=== PATIENT | female | born 1985 | race Caucasian/White ===

== ENCOUNTER 2023-09-04 13:58 | Emergency (ER) | payer OTHER, SELFPAY ==
[2023-09-04 14:06] VITALS: BP 138/91; PULSE 100; RESP 19; TEMP 36.6; O2SAT 96; BMI 33.5
--- NOTE | 2023-09-04 14:06 | ED_ITS ---
HPI - General Adult General Chief complaint: Abdominal Pain Stated complaint: Back Pain No Injury Time Seen by Provider: 09/04/23 18:17 Related Data Allergies Allergy/AdvReac Type Severity Reaction Status Date / Time No Known Allergies Allergy Verified 09/04/23 14:09 [facility] Social History Social History Advance Directives: No Advance Directives Information Provided: Yes Physical Exam ED Vital Signs: Vital Signs - 24 hr 09/04/23 14:06 09/04/23 18:12 Temperature 98 F Pulse Rate 100 85 Respiratory Rate 19 18 Blood Pressure 138/91 H 139/89 Pulse Oximetry 96 96 Oxygen Delivery Method Room Air Room Air BMI result Body Mass Index 33.5 Course Course Course Narrative: This is an RME: Additional HPI, ROS, PE not included below will be deferred to primary provider. 37 yo f with pmhx pancreatitis and alcohol abuse, alcohol withdrawal, presents with severe l sided flank pain. Reports nausea, vomiting, diarrhea, dizziness. Reports 4 mixed drinks per day. Last drink last night. Medical Decision Making Lab Data 09/04/23 14:20 09/04/23 14:20 Labs: Lab Results 09/04/23 Range/Units 14:20 WBC 5.2 (4.8-10.8) X10*3/uL RBC 4.42 (4.20-5.50) X10*6/uL Hgb 14.9 (12.0-16.0) g/dl Hct 42.5 (37.0-47.0) % MCV 96.2 (80.0-98.0) fL MCH 33.7 H (27.0-33.0) pg MCHC 35.1 H (31.0-35.0) g/dl RDW 12.3 (11.0-16.0) % Plt Count 268 (160-400) X10*3/uL MPV 9.4 (9.4-12.3) fL Immature Gran % (Auto) 0.2 (0.0-0.4) % Neut % (Auto) 44.1 L (45-73) % Lymph % (Auto) 47.0 H (20-40) % [place] % (Auto) 5.5 (2-11) % Eos % (Auto) 1.9 (0-4) % Baso % (Auto) 1.3 (0-2) % Lymph # (Auto) 2.5 (1.2-4.9) X10*3/uL [place] # (Auto) 0.3 (0.1-1.2) X10*3/uL Eos # (Auto) 0.1 (0.0-0.4) X10*3/uL Baso # (Auto) 0.1 (0.0-0.2) X10*3/uL Abs Immat Gran (auto) 0.01 (0.00-0.03) X10*3/uL Absolute Neuts (auto) 2.3 (2.0-8.3) x10*3/uL Absolute Nucleated RBC 0.000 (0.0-0.012) X10*3/uL Nucleated RBC % (auto) 0.0 (0.0-0.2) /100WBC Sodium 142 (135-145) mmol/L Potassium 3.8 (3.3-5.1) mmol/L Chloride 106 (96-108) mmol/L Carbon Dioxide 26 (22-29) mmol/L Anion Gap 14 (12-20) BUN 11 (9-16) mg/dL Creatinine 0.82 (0.5-1.4) mg/dL Estim Creat Clear Calc 115.0 Estimated GFR > 60 Random Glucose 99 (60-115) mg/dL Calcium 8.9 (8.4-10.2) mg/dL Magnesium 2.2 (1.6-2.6) mg/dL Total Bilirubin 0.4 (0.0-1.0) mg/dL AST 21 (5-31) U/L ALT 16 (0-31) U/L Alkaline Phosphatase 83 (39-117) U/L Total Protein 7.5 (6.5-8.0) g/dL Albumin 4.2 (3.5-5.0) g/dL Lipase < 4 L (8-78) U/L Discharge Plan Discharge Clinical Impression: Eloped from emergency department Patient Disposition: Left W/O Completing Treatment
[2023-09-04 14:26] LABS: MANUAL DIFF FLAG NO
[2023-09-04 14:27] LABS: Basophils Absolute Auto 0.1 X10*3/uL (0.0-0.2); Basophils Percent Auto 1.3 % (0-2); Eosinophils Absolute Auto 0.1 X10*3/uL (0.0-0.4); Eosinophils Percent Auto 1.9 % (0-4); Hematocrit 42.5 % (37.0-47.0); Hemoglobin 14.9 g/dl (12.0-16.0); Imm Gran Abs Auto 0.01 X10*3/uL (0.00-0.03); Imm Gran Pct Auto 0.2 % (0.0-0.4); Lymphocytes Absolute Auto 2.5 X10*3/uL (1.2-4.9); Mean Corpuscular HGB Conc 35.1 g/dl (31.0-35.0); Mean Corpuscular Hemoglobin 33.7 pg (27.0-33.0); Mean Corpuscular Volume 96.2 fL (80.0-98.0); Mean Platelet Volume 9.4 fL (9.4-12.3); Monocytes Absolute Auto 0.3 X10*3/uL (0.1-1.2); Monocytes Percent Auto 5.5 % (2-11); Neutrophils Absolute Auto 2.3 x10*3/uL (2.0-8.3); Neutrophils Percent Auto 44.1 % (45-73); Platelet Count 268 X10*3/uL (160-400); Red Blood Count 4.42 X10*6/uL (4.20-5.50); Red Cell Distribution Width 12.3 % (11.0-16.0); White Blood Count 5.2 X10*3/uL (4.8-10.8)
[2023-09-04 15:16] LABS: Alanine Aminotransferase 16 U/L (0-31); Albumin Level 4.2 g/dL (3.5-5.0); Alkaline Phosphatase 83 U/L (39-117); Anion Gap 14 (12-20); Aspartate Amino Transferase 21 U/L (5-31); Bilirubin Total 0.4 mg/dL (0.0-1.0); Blood Urea Nitrogen 11 mg/dL (9-16); Calcium 8.9 mg/dL (8.4-10.2); Carbon Dioxide 26 mmol/L (22-29); Chloride 106 mmol/L (96-108); Estimated Glomerular Filt Rate > 60; Glucose Random 99 mg/dL (60-115); Lipase < 4 U/L (8-78); Magnesium 2.2 mg/dL (1.6-2.6); Potassium 3.8 mmol/L (3.3-5.1); Sodium 142 mmol/L (135-145); Total Protein 7.5 g/dL (6.5-8.0)
[2023-09-04 18:12] VITALS: BP 139/89; PULSE 85; RESP 18; O2SAT 96
== END 2023-09-04 18:18 | disposition left against medical advice (07) ==
PROVIDERS: Physician Assistant; Emergency Provider Emergency Medicine; PCP Family Medicine
DX: R10.9 Unspecified abdominal pain (principal); Z87.19 Personal history of other diseases of the digestive system
CPT/HCPCS: 36415; 80053; 83690; 83735; 85025; 99281; 99283

== ENCOUNTER 2023-09-05 09:21 | Outpatient (REF) | payer OTHER, SELFPAY ==
--- NOTE | ~2023-09-05 | CT_ITS ---
EXAMINATION: CT abdomen pelvis wo IV con CLINICAL INFORMATION: Reason for Exam left flank pain COMPARISON: No prior CT available for comparison. TECHNIQUE: Multidetector volumetric imaging was performed from the superior aspect of the liver through the pubic symphysis , noncontrast CT. Sagittal and coronal reformatted images were obtained on the technologist's workstation. This CT examination was performed using dose optimization techniques as appropriate, variously including the following: *Automated exposure control *Adjustment of mA and/or kV according to patient size (this includes techniques or standardized protocols for targeted exams where dose is matched to indication/reason for exam; i.e. extremities or head) *Use of iterative reconstruction technique DLP: 801 mGy-cm FINDINGS: LOWER THORAX: Included lung bases are clear. HEPATOBILIARY: No focal hepatic lesions. No biliary ductal dilatation. GALLBLADDER: Gallbladder unremarkable. SPLEEN: Spleen is normal in size. PANCREAS: No focal mass or ductal dilatation. STOMACH AND GASTROINTESTINAL TRACT: Stomach is grossly unremarkable. Mild circumferential wall thickening of the entire colon with low attenuation of its mucosal lining nonspecific and could be sequela of chronic or prior colitis. Few sigmoid diverticula without evidence of acute diverticulitis. No CT evidence of appendicitis. ADRENALS: No adrenal nodules. KIDNEYS/URETERS: No hydronephrosis, stones or solid mass lesions. URINARY BLADDER: Partially decompressed. PELVIC VISCERA: Unremarkable PERITONEUM: No free air or fluid. LYMPH NODES: No lymphadenopathy. VASCULAR:Abdominal aorta normal in size, no aneurysm found. BONES, ABDOMINAL WALL AND SOFT TISSUES: Old fractures of the left posterior lower ribs no pathologic acute fractures. CT/CT abdomen pelvis wo IV con IMPRESSION: 1. No CT evidence of kidney stones or hydronephrosis. 2. Mild circumferential wall thickening of the entire colon with low attenuation of its mucosal lining nonspecific and could be sequela of chronic or prior colitis. 3. Mild sigmoid diverticulosis without evidence of acute diverticulitis. 4. No CT evidence of kidney stone or hydronephrosis on either side.
[2023-09-05 09:24] VITALS: BP 140/101; PULSE 95; RESP 18; TEMP 36; O2SAT 97; BMI 33.4
[2023-09-05 09:45] LABS: MANUAL DIFF FLAG NO
[2023-09-05 09:48] LABS: Basophils Absolute Auto 0.1 X10*3/uL (0.0-0.2); Basophils Percent Auto 0.9 % (0-2); Eosinophils Absolute Auto 0.1 X10*3/uL (0.0-0.4); Eosinophils Percent Auto 1.4 % (0-4); Hematocrit 45.9 % (37.0-47.0); Hemoglobin 15.8 g/dl (12.0-16.0); Imm Gran Abs Auto 0.02 X10*3/uL (0.00-0.03); Imm Gran Pct Auto 0.3 % (0.0-0.4); Lymphocytes Absolute Auto 2.3 X10*3/uL (1.2-4.9); Lymphocytes Percent Auto 32.3 % (20-40); Mean Corpuscular HGB Conc 34.4 g/dl (31.0-35.0); Mean Corpuscular Hemoglobin 33.8 pg (27.0-33.0); Mean Corpuscular Volume 98.3 fL (80.0-98.0); Mean Platelet Volume 9.9 fL (9.4-12.3); Monocytes Absolute Auto 0.4 X10*3/uL (0.1-1.2); Monocytes Percent Auto 5.6 % (2-11); Neutrophils Absolute Auto 4.2 x10*3/uL (2.0-8.3); Neutrophils Percent Auto 59.5 % (45-73); Platelet Count 259 X10*3/uL (160-400); Red Blood Count 4.67 X10*6/uL (4.20-5.50); Red Cell Distribution Width 12.5 % (11.0-16.0)
--- NOTE | 2023-09-05 09:52 | ED.GENADULT ---
HPI - General Adult General Chief complaint: Nausea/Vomiting/Diarrhea Stated complaint: Back pain, vomiting Time Seen by Provider: 09/05/23 09:51 Source: patient Mode of arrival: ambulatory Limitations: no limitations History of Present Illness HPI narrative: 37 year old female with pmhx significant for etoh dependence and pancreatitis presents to the ED today for evaluation of left flank pain x1 week. Reports associated nausea, vomiting, and diarrhea that began 2 days ago. She presented to the ED yesterday for evaluation however left without completing treatment. She returns today with continued vomiting and left flank pain. Last episode of vomiting this morning. Admits to history of pancreatitis x2. Last hospitalized for this years ago. Admits this feels similar. Endorses daily etoh consumption, approximately 1 sleeve of nips daily. Last drink was yesterday. She states I feel like I'm withdrawing . Has hx of wtihdrawal. Denies hx of withdrawal seizures or DT. Denies fevers, chills, sore throat, cough, constipation, abdominal pain, dysuria, hematuria, bladder retention. Denies known sick contacts. Related Data Previous Rx's ?Medication ?Instructions ?Recorded cyclobenzaprine 5 mg tablet 5 mg PO Q8H PRN muscle spasm #7 09/05/23 tabs ondansetron 4 mg disintegrating 4 mg PO DAILY PRN nausea and 09/05/23 tablet vomiting 5 days #10 tabs Allergies Allergy/AdvReac Type Severity Reaction Status Date / Time No Known Allergies Allergy Verified 09/05/23 09:27 Review of Systems Review of Systems: Constitutional: No fever, chills, fatigue, night sweats, weight changes ENT/Mouth: No ear pain, hearing loss, nasal congestion, sinus pain, rhinorrhea, sore throat Eyes: No eye pain, swelling, redness, vision changes, discharge Cardio: No chest pain, palpitations, MORENO, orthopnea, peripheral edema Pulm: No SOB, cough, sputum, wheezing, dyspnea, hemoptysis GI: No hematemesis, abdominal pain, constipation, hematochezia, melena, + nausea, + vomiting, + diarrhea, + left flank pain : No irregular bleeding, dysuria, frequency, urgency, hesitancy, hematuria, urinary flow changes, urinary incontinence or retention MSK: No back pain, neck pain, joint pain, myalgias Skin: No lesions, rashes Neuro: No weakness, numbness, paresthesias, LOC, dizziness, headache Psych: No anxiety/panic, depression, SI/HI, AH/VH All other systems reviewed and are negative. [facility] Past Medical History Attestation statement: The following information was validated with the patient. Source: old records reviewed and nursing notes reviewed Social History Social History Advance Directives: No Physical Exam ED Vital Signs: Vital Signs - 24 hr 09/05/23 09:24 09/05/23 11:39 09/05/23 14:36 Temperature 96.8 F 98.1 F 98.3 F Pulse Rate 95 79 80 Respiratory Rate 18 18 18 Blood Pressure 140/101 H 120/78 126/76 Pulse Oximetry 97 94 94 Oxygen Delivery Method Room Air Room Air Room Air BMI result Body Mass Index 33.4 Patient hypertensive, vitals otherwise WNL. Const General: cooperative, healthy appearing, comfortable and no acute distress Orientation/consciousness: patient oriented x3 Limitations: no limitations HENID Head: Yes normal to inspection, Yes No palpable skull fracture present, Yes normocephalic and Yes atraumatic Eyes General: appearance normal, both eyes and all related structures Conjunctivae: conjunctivae normal Sclerae: sclerae normal Pupils: Equal, round and reactive pupils present Neck Neck: Yes normal visual inspection, Yes full ROM and Yes no lymphadenopathy Resp Effort & Inspection: normal respiratory effort and able to speak in complete sentences Auscultation: clear to auscultation bilaterally Cardio Rate: regular rate Rhythm: regular rhythm GI Other: Abdomen soft, nondistended, nontender to palpation, no rebound tenderness or guarding. Negative Norton's sign. Normoactive bowel sounds x4 Inspection: Yes normal to inspection and Yes obesity Other: Left CVAT Back/Spine/Pelvis Other: No midline spinous tenderness or step off deformity. No paraspinal muscle tenderness. Skin General skin exam: no rashes or lesions noted Neuro General: patient oriented x3 and gait normal Cranial nerves: Yes Equal, round and reactive pupils present Extrem General: Yes normal to inspection, Yes full ROM and Yes capillary refill normal Course Course Course Narrative: 1506-- CBC without leukocytosis or left shift. No anemia. Chemistry without acute electrolyte abnormality requiring intervention. Normal renal function. Random glucose 124. Normal liver function. Beta HCG negative > not . She is tested negative for COVID, flu, RSV. Urine does not demonstrate infection or blood > nephrolithiasis less likely. Awaiting CT abdomen/pelvis. 1517-- CT abdomen/pelvis does not show evidence of kidney stone or hydronephrosis. This correlates with normal renal function on labs. There is mild circumferential wall thickening of the entire colon with low attenuation of its mucosal lining. Nonspecific and could be sequela of chronic or prior colitis. There is mild sigmoid diverticulosis without evidence of acute diverticulitis. Patient likely has viral colitis. Discussed all workup results with patient. She is declining stool sample for GI panel at this time. Educated on symptomatic treatment. Will also send Flexeril to pharmacy for likely muscle spasm to left lumbar paraspinal muscles. Patient has remained stable throughout ED visit today. Discussed worrisome signs and symptoms and when to return to the ED. All questions answered at this time. Patient is agreeable with disposition and stable for discharge. Medications Administered Discontinued Medications Generic Name Dose Route Start Last Admin Trade Name Freq PRN Reason Stop Dose Admin Sodium Chloride 1,000 mls @ 999 mls/hr 09/05/23 10:15 09/05/23 13:31 Ns IV 09/05/23 11:15 Infused .Q1H1M ALEJANDRINA Infusion Lorazepam 1 mg 09/05/23 10:13 09/05/23 11:19 Lorazepam 1 Mg Tablet PO 09/05/23 10:14 1 mg ONCE ONE Administration Medical Decision Making Medical Decision Making MDM Narrative: 37 year old female with pmhx significant for etoh dependence and pancreatitis presents to the ED today for evaluation of left flank pain x1 week. Patient hypertensive. Vitals otherwise WNL. Afebrile. She is nontoxic-appearing and in no acute distress. On exam, obese abdomen, nondistended, nontender to palpation. No rebound tenderness or guarding. Normoactive bowel sounds x4. Negative Norton's sign. Left CVAT. No rashes. No asterixis. Mildly tremulous. No tongue fasciculations. Differential diagnosis includes renal colic, nephrolithiasis, hydronephrosis, urinary tract infections, gastroenteritis, viral syndrome, pancreatitis, MSK sprain/strain. Lower suspicion for biliary colic, cholelithiasis, cholangitis, appendicitis, bowel obstruction, ischemic bowel. Plan for labs, viral serology, UA, and re-evaluation. Differential Diagnosis Differential Diagnoses: The differential diagnosis associated with the presentation includes as above. Admission/Observation Consideration of admission/observation: Escalation of care including admission/observation considered Lab Data MDM Lab Attestation statement: I reviewed the patient's lab results. As above 09/05/23 09:39 09/05/23 09:39 Labs: Lab Results 09/05/23 09/05/23 Range/Units 09:39 12:21 WBC 7.0 (4.8-10.8) X10*3/uL RBC 4.67 (4.20-5.50) X10*6/uL Hgb 15.8 (12.0-16.0) g/dl Hct 45.9 (37.0-47.0) % MCV 98.3 H (80.0-98.0) fL MCH 33.8 H (27.0-33.0) pg MCHC 34.4 (31.0-35.0) g/dl RDW 12.5 (11.0-16.0) % Plt Count 259 (160-400) X10*3/uL MPV 9.9 (9.4-12.3) fL Immature Gran % (Auto) 0.3 (0.0-0.4) % Neut % (Auto) 59.5 (45-73) % Lymph % (Auto) 32.3 (20-40) % [place] % (Auto) 5.6 (2-11) % Eos % (Auto) 1.4 (0-4) % Baso % (Auto) 0.9 (0-2) % Lymph # (Auto) 2.3 (1.2-4.9) X10*3/uL [place] # (Auto) 0.4 (0.1-1.2) X10*3/uL Eos # (Auto) 0.1 (0.0-0.4) X10*3/uL Baso # (Auto) 0.1 (0.0-0.2) X10*3/uL Abs Immat Gran (auto) 0.02 (0.00-0.03) X10*3/uL Absolute Neuts (auto) 4.2 (2.0-8.3) x10*3/uL Absolute Nucleated RBC 0.000 (0.0-0.012) X10*3/uL Nucleated RBC % (auto) 0.0 (0.0-0.2) /100WBC Sodium 139 (135-145) mmol/L Potassium 3.9 (3.3-5.1) mmol/L Chloride 105 (96-108) mmol/L Carbon Dioxide 22 (22-29) mmol/L Anion Gap 16 (12-20) BUN 11 (9-16) mg/dL Creatinine 0.81 (0.5-1.4) mg/dL Estim Creat Clear Calc 116.3 Estimated GFR > 60 Random Glucose 124 H (60-115) mg/dL Calcium 9.0 (8.4-10.2) mg/dL Total Bilirubin 0.3 (0.0-1.0) mg/dL AST 19 (5-31) U/L ALT 16 (0-31) U/L Alkaline Phosphatase 84 (39-117) U/L Total Protein 7.9 (6.5-8.0) g/dL Albumin 4.3 (3.5-5.0) g/dL Lipase 4 L (8-78) U/L Beta HCG, Quant < 2 mIU/mL Urine Color Dark Yellow Urine Appearance Clear Urine pH 6.0 (5.0-9.0) Ur Specific [place] 1.025 (1.005-1.025) Urine Protein Negative (Neg-Trace) mg/dL Urine Glucose (UA) Negative (Negative) mg/dL Urine Ketones Negative (Negative) mg/dL Urine Blood Negative (Negative) Urine Nitrite Negative (Negative) Ur Leukocyte Esterase Negative (Negative) Influenza Type A (PCR) NEGATIVE (Negative) Influenza Type B (PCR) NEGATIVE (Negative) RSV RNA Qual (PCR) NEGATIVE (Negative) SARS-CoV-2 RNA (RT-PCR) NEGATIVE (Negative) Prescription Management I considered prescription management with: Pain Medication Chronic Conditions Patient?s care impacted by: Other (ETOH abuse) Social Determinants Patient?s care significantly limited by Social Determinants of Health including: Other Social Determinant of Health Discharge Plan Discharge Clinical Impression: Colitis Patient Disposition: Home, Self-Care Instructions: Acute Nausea and Vomiting (ED), Acute Diarrhea (ED), Colitis (ED) Additional Instructions: Your lab work today is reassuring. Your urine is negative for infection and blood. You tested negative for . You tested negative for COVID, flu, RSV. The CT scan of your abdomen/pelvis shows evidence of colitis (inflammation of your bowel). This is most often caused by a virus and does not warrant treatment with antibiotics. Treatment for this is supportive care. The recommendation is rest and lots of oral hydration.? Stick to a bland diet like soup and toast while you are not feeling well.? Zofran is an anti-nausea medication. This has been sent to your pharmacy for you to take as needed for nausea.? You can also try over the counter Pepto Bismol or Imodium as needed for upset stomach and diarrhea.? Follow up with your primary care provider as needed. If you develop new or worsening symptoms call 911 or come back to the ER for further evaluation. Additionally, Flexeril as a muscle relaxer that has been sent to your pharmacy. Take this as needed for muscle pain/spasm. Do not drink, drive or operate heavy machinery while taking this medication as it may make you drowsy. You may also use the lidocaine patches that you have at home. Apply these every 12 hours to painful areas. Take Tylenol and ibuprofen as needed for pain/discomfort. Please return with new or worsening symptoms. In the case of an emergency call 911. Prescriptions: New cyclobenzaprine 5 mg tablet 5 mg PO Q8H PRN (Reason: muscle spasm) Qty: 7 0RF ondansetron 4 mg tablet,disintegrating 4 mg PO DAILY PRN (Reason: nausea and vomiting) 5 Days Qty: 10 0RF Stand Alone Forms: Work/School Release Print Language: Sami
[2023-09-05 10:15] LABS: Alanine Aminotransferase 16 U/L (0-31); Albumin Level 4.3 g/dL (3.5-5.0); Alkaline Phosphatase 84 U/L (39-117); Anion Gap 16 (12-20); Aspartate Amino Transferase 19 U/L (5-31); Bilirubin Total 0.3 mg/dL (0.0-1.0); Blood Urea Nitrogen 11 mg/dL (9-16); Carbon Dioxide 22 mmol/L (22-29); Chloride 105 mmol/L (96-108); Creatinine Clr Calc Pharmacy 116.3; Estimated Glomerular Filt Rate > 60; Glucose Random 124 mg/dL (60-115); Lipase 4 U/L (8-78); Potassium 3.9 mmol/L (3.3-5.1); Sodium 139 mmol/L (135-145)
[2023-09-05 10:35] LABS: Total Protein 7.9 g/dL (6.5-8.0)
[2023-09-05 10:51] LABS: Influenza A PCR NEGATIVE (Negative); Influenza B PCR NEGATIVE (Negative); Resp Syncy Virus RNA Qual PCR NEGATIVE (Negative); SARS COV2 PCR INHOUSE NEGATIVE (Negative)
[2023-09-05] MEDS: LORazepam 1 MG TABLET PO (11:19)
[2023-09-05] MEDS: 0.9 % Sodium Chloride 1,000 ML 999 ML IV (11:19)
[2023-09-05 11:39] VITALS: BP 120/78; PULSE 79; RESP 18; TEMP 36.7; O2SAT 94
[2023-09-05 12:29] LABS: Appearance Urine Clear; Color Urine Dark Yellow; Glucose Urine UA Negative (Negative); Leukocyte Esterase Urine Negative (Negative); Nitrite Urine Negative (Negative); Specific Gravity - Urine 1.025 (1.005-1.025); Urine Blood Negative (Negative); Urine Ketones Negative (Negative); Urine Protein Negative (Neg-Trace)
[2023-09-05 12:42] LABS: HCG Quantitative < 2 mIU/mL
[2023-09-05 14:36] VITALS: BP 126/76; PULSE 80; RESP 18; TEMP 36.8; O2SAT 94
[2023-09-05 15:48] VITALS: BP 134/78; PULSE 78; RESP 18; TEMP 36.6; O2SAT 98
[2023-09-05 19:08] LABS: CDiff Gene PCR POSITIVE (Negative)
[2023-09-05 19:57] LABS: CDIFF Internal ctrl Dots and bkg OK (V); CDiff Toxin Negative (Negative)
[2023-09-06 10:00] LABS: Adenovirus F 40/41 Not Detected (Not Detect.); Astrovirus Not Detected (Not Detect.); Campylobacter Not Detected (Not Detect.); Cryptosporidium Not Detected (Not Detect.); Cyclospora cayetanensis Not Detected (Not Detect.); E. coli EAEC Not Detected (Not Detect.); E. coli EPEC Not Detected (Not Detect.); E. coli ETEC Not Detected (Not Detect.); E. coli STEC Not Detected (Not Detect.); Entamoeba histolytica Not Detected (Not Detect.); Giardia lamblia Not Detected (Not Detect.); Norovirus GI/GII Not Detected (Not Detect.); Plesiomonas shigelloides Not Detected (Not Detect.); Rotavirus A Not Detected (Not Detect.); Salmonella Not Detected (Not Detect.); Sapovirus Not Detected (Not Detect.); Shigella sp./EIEC Not Detected (Not Detect.); Vibrio Not Detected (Not Detect.); Vibrio Cholerae Not Detected (Not Detect.); Yersinia enterocolitica Not Detected (Not Detect.)
== END 2023-09-05 18:14 | disposition home or self-care (01) ==
LOC: HO.LNP 18:13
PROVIDERS: Emergency Provider Emergency Medicine; PCP Family Medicine; Visit Provider Physician Assistant Medical
DX: K52.9 Noninfective gastroenteritis and colitis, unspecified (principal); K57.30 Diverticulosis of large intestine without perforation or abscess without bleeding; R11.2 Nausea with vomiting, unspecified; I10 Essential (primary) hypertension; F10.20 Alcohol dependence, uncomplicated; Y90.9 Presence of alcohol in blood, level not specified; Z20.828 Contact with and (suspected) exposure to other viral communicable diseases; Z11.52 Encounter for screening for COVID-19
CPT/HCPCS: 0241U; 74176; 80053; 81003; 83690; 84702; 85025; 87324; 87493; 87507; 99284

== ENCOUNTER 2024-05-07 23:19 | Emergency (ER) | payer OTHER, SELFPAY ==
--- NOTE | ~2024-05-07 | XR_ITS ---
EXAMINATION: XR chest 2V CLINICAL INFORMATION: cough COMPARISON: None TECHNIQUE: 2 views of the chest FINDINGS: Clear lungs. No pneumothorax. No pleural effusion. Normal cardiomediastinal silhouette. XR/XR chest 2V IMPRESSION: Clear lungs. Electronically signed by: Yaneth Serrato MD 05/08/2024 12:45 AM [facility]
[2024-05-07 23:25] VITALS: BP 128/96; PULSE 107; RESP 18; TEMP 35.3; O2SAT 98; BMI 30.7
[2024-05-07 23:50] LABS: MANUAL DIFF FLAG NO
[2024-05-07 23:52] LABS: Basophils Absolute Auto 0.1 X10*3/uL (0.0-0.2); Basophils Percent Auto 0.8 % (0-2); Eosinophils Absolute Auto 0.1 X10*3/uL (0.0-0.4); Eosinophils Percent Auto 0.7 % (0-4); Hematocrit 43.5 % (37.0-47.0); Hemoglobin 15.9 g/dl (12.0-16.0); Imm Gran Abs Auto 0.01 X10*3/uL (0.00-0.03); Imm Gran Pct Auto 0.1 % (0.0-0.4); Lymphocytes Absolute Auto 3.5 X10*3/uL (1.2-4.9); Lymphocytes Percent Auto 45.5 % (20-40); Mean Corpuscular HGB Conc 36.6 g/dl (31.0-35.0); Mean Corpuscular Hemoglobin 34.4 pg (27.0-33.0); Mean Corpuscular Volume 94.2 fL (80.0-98.0); Mean Platelet Volume 9.2 fL (9.4-12.3); Monocytes Absolute Auto 0.4 X10*3/uL (0.1-1.2); Monocytes Percent Auto 5.1 % (2-11); Neutrophils Absolute Auto 3.7 x10*3/uL (2.0-8.3); Neutrophils Percent Auto 47.8 % (45-73); Platelet Count 318 X10*3/uL (160-400); Red Blood Count 4.62 X10*6/uL (4.20-5.50); Red Cell Distribution Width 11.7 % (11.0-16.0); White Blood Count 7.6 X10*3/uL (4.8-10.8)
[2024-05-08 00:06] LABS: Alanine Aminotransferase 25 U/L (0-31); Albumin Level 4.1 g/dL (3.5-5.0); Alkaline Phosphatase 87 U/L (39-117); Anion Gap 17 (12-20); Aspartate Amino Transferase 35 U/L (5-31); Bilirubin Total 0.6 mg/dL (0.0-1.0); Blood Urea Nitrogen 16 mg/dL (9-16); Calcium 8.3 mg/dL (8.4-10.2); Carbon Dioxide 19 mmol/L (22-29); Chloride 105 mmol/L (96-108); Creatinine Clr Calc Pharmacy 103.9; Estimated Glomerular Filt Rate > 60; Glucose Random 143 mg/dL (60-115); Lipase 24 U/L (8-78); Potassium 3.8 mmol/L (3.3-5.1); Sodium 137 mmol/L (135-145); Total Protein 7.5 g/dL (6.5-8.0)
[2024-05-08 00:37] LABS: Ethanol 231 mg/dL
--- NOTE | 2024-05-08 00:43 | ED.GENADULT ---
HPI - General Adult General Chief complaint: Nausea/Vomiting/Diarrhea Stated complaint: resp. infection Time Seen by Provider: 05/08/24 00:17 Source: patient, RN notes reviewed and old records reviewed Mode of arrival: ambulatory Limitations: no limitations History of Present Illness ED Provider: Dev HORN narrative: 38-year-old female presents for evaluation of ?a respiratory infection. ? Patient reports that she went to her doctor on Thursday due to coughing. She was started on azithromycin in her last doses tomorrow. She reports that she has been feeling weak and she has been coughing to the point of vomiting. She reports some red streaks in her vomitus. She reports that she drinks 10 nips of vodka daily. She reports her last drink was early this morning She denies any abdominal pain. She has a history of pancreatitis but feels this is about the same. Denies any sick contacts Related Data Previous Rx's ?Medication ?Instructions ?Recorded cyclobenzaprine 5 mg tablet 5 mg PO Q8H PRN muscle spasm #7 09/05/23 tabs ondansetron 4 mg disintegrating 4 mg PO DAILY PRN nausea and 09/05/23 tablet vomiting 5 days #10 tabs ondansetron 4 mg disintegrating 4 mg PO Q8H PRN nausea and 05/08/24 tablet vomiting #20 tabs Allergies Allergy/AdvReac Type Severity Reaction Status Date / Time No Known Allergies Allergy Verified 05/07/24 23:31 Review of Systems Constitutional: Constitutional: Reports body ache(s), Reports chills, Reports fever(s), Denies frequent falls, Reports malaise and Reports weakness Eyes: Eyes: Denies blurry vision ENT: Reports sore throat Cardiovascular: Cardiovascular: Denies chest pain and Reports dyspnea Respiratory: Respiratory: Reports cough, Reports pain with cough and Reports dyspnea Gastrointestinal: Gastrointestinal: Denies abdominal pain, Denies hematochezia, Reports nausea, Reports vomiting and Reports hematemesis Musculoskeletal: Musculoskeletal: Denies back pain Integumentary/Breasts: Skin/Breast: Denies rash Neurologic: Denies frequent falls and Reports weakness Psychiatric: Psychiatric: Denies anxiety PMFSH Social History Social History Alcohol intake: current Smoked in Last 30 Days: No Use of substances other than those prescribed or required for medical reasons: No Advance Directives: No Advance Directives Information Provided: No Do you have a plan to hurt others: No Plan Patient : No Physical Exam ED Vital Signs: Vital Signs - 24 hr 05/07/24 23:25 05/08/24 01:09 Temperature 95.6 F L 98.4 F Pulse Rate 107 H 87 Respiratory Rate 18 14 Blood Pressure 128/96 H 103/75 Pulse Oximetry 98 96 Oxygen Delivery Method Room Air Room Air BMI result Body Mass Index 30.7 Const General: healthy appearing, comfortable, no acute distress, alert and awake Nutritional Appearance: well nourished Orientation/consciousness: patient oriented x3 HENMT Head: Yes normocephalic and Yes atraumatic Throat: Yes posterior oropharynx normal Eyes Eyelids: Yes eyelids normal Conjunctivae: conjunctivae normal Sclerae: sclerae normal Corneas: corneas normal Pupils: Equal, round and reactive pupils present EOM: EOMs intact bilaterally Neck Neck: Yes full ROM Resp Effort & Inspection: normal respiratory effort, able to speak in complete sentences, no audible wheezes and not labored Auscultation: clear to auscultation bilaterally Cardio Rate: regular rate Rhythm: regular rhythm GI Inspection: No distended Palpation (GI): Soft to palpation, not firm, nontender, no guarding and not rigid Skin General skin exam: elasticity normal Neuro General: patient oriented x3 Cranial nerves: Yes Equal, round and reactive pupils present and Yes Bilaterally intact EOM present Cognition (Neuro): normal cognition Extrem Other: Moving all extremities well without any obvious deformities Course Reevaluation(s) Reevaluation #1: Patient's workup largely unremarkable, she was intoxicated with an alcohol level of 231. She was given Zofran Ativan, she has not had any further vomiting. I discussed detox with the patient, she was provided outpatient resources she does not wish to stay and speak to the addiction medicine team. She is medically cleared for discharge at this time Time: 02:08 Medications Administered Discontinued Medications Generic Name Dose Route Start Last Admin Trade Name Freq PRN Reason Stop Dose Admin Lorazepam 2 mg 05/08/24 00:26 05/08/24 00:48 Lorazepam 1 Mg Tablet PO 05/08/24 00:27 2 mg ONCE ONE Administration Ondansetron HCl 4 mg 05/08/24 00:26 05/08/24 00:47 Ondansetron Odt 4 Mg Tab.Amilcar ZAFAR 05/08/24 00:27 4 mg ONCE ONE Administration Medical Decision Making Medical Decision Making [facility] Narrative: 38-year-old female presents for evaluation of flu-like symptoms. She saw her doctor on Thursday, 5 days ago. She denies having had any testing done including viral swabs, chest x-ray. Plan for labs, chest x-ray, viral swabs. The patient's vomiting may be from irritation or Beverly-Bhatia tear, I have a low suspicion for severe GI bleed as the patient is not hypotensive, she is quite well appearing and has not had any vomiting whatsoever in the Differential Diagnosis Differential Diagnoses: The differential diagnosis associated with the presentation includes Influenza COVID-19 Pneumonia Upper respiratory infection Vomiting Alcohol withdrawal Acute alcohol intoxication Lab Data [facility] Lab Attestation statement: I reviewed the patient's lab results. No leukocytosis. The patient has a high normal hemoglobin and hematocrit of 15.9 and 43.5 respectively, there is no significant left shift. Chemistries without concerning abnormality. CO2 is just below normal at 19 which may be related to hyperventilation. Random glucose of 143. The patient's AST is just above normal at 35 which could be related to alcoholic liver disease. Lipase is within normal limits, 05/07/24 23:46 05/07/24 23:46 Labs: Lab Results 05/07/24 05/08/24 Range/Units 23:46 01:04 WBC 7.6 (4.8-10.8) X10*3/uL RBC 4.62 (4.20-5.50) X10*6/uL Hgb 15.9 (12.0-16.0) g/dl Hct 43.5 (37.0-47.0) % MCV 94.2 (80.0-98.0) fL MCH 34.4 H (27.0-33.0) pg MCHC 36.6 H (31.0-35.0) g/dl RDW 11.7 (11.0-16.0) % Plt Count 318 (160-400) X10*3/uL MPV 9.2 L (9.4-12.3) fL Immature Gran % (Auto) 0.1 (0.0-0.4) % Neut % (Auto) 47.8 (45-73) % Lymph % (Auto) 45.5 H (20-40) % [place] % (Auto) 5.1 (2-11) % Eos % (Auto) 0.7 (0-4) % Baso % (Auto) 0.8 (0-2) % Lymph # (Auto) 3.5 (1.2-4.9) X10*3/uL [place] # (Auto) 0.4 (0.1-1.2) X10*3/uL Eos # (Auto) 0.1 (0.0-0.4) X10*3/uL Baso # (Auto) 0.1 (0.0-0.2) X10*3/uL Abs Immat Gran (auto) 0.01 (0.00-0.03) X10*3/uL Absolute Neuts (auto) 3.7 (2.0-8.3) x10*3/uL Absolute Nucleated RBC 0.000 (0.0-0.012) X10*3/uL Nucleated RBC % (auto) 0.0 (0.0-0.2) /100WBC Sodium 137 (135-145) mmol/L Potassium 3.8 (3.3-5.1) mmol/L Chloride 105 (96-108) mmol/L Carbon Dioxide 19 L (22-29) mmol/L Anion Gap 17 (12-20) BUN 16 (9-16) mg/dL Creatinine 0.86 (0.5-1.4) mg/dL Estim Creat Clear Calc 103.9 Estimated GFR > 60 Random Glucose 143 H (60-115) mg/dL Calcium 8.3 L D (8.4-10.2) mg/dL Total Bilirubin 0.6 (0.0-1.0) mg/dL AST 35 H (5-31) U/L ALT 25 (0-31) U/L Alkaline Phosphatase 87 (39-117) U/L Total Protein 7.5 (6.5-8.0) g/dL Albumin 4.1 (3.5-5.0) g/dL Lipase 24 (8-78) U/L Beta HCG, Quant < 2 mIU/mL Ethyl Alcohol 231 mg/dL Influenza Type A (PCR) NEGATIVE (Negative) Influenza Type B (PCR) NEGATIVE (Negative) RSV RNA Qual (PCR) NEGATIVE (Negative) SARS-CoV-2 RNA (RT-PCR) NEGATIVE (Negative) Independent Interpretation I performed an independent interpretation of an: Plain X-Ray (No focal infiltrates) Discharge Plan Discharge Clinical Impression: Cough, Alcohol abuse Patient Disposition: Home, Self-Care Instructions: Abuse of Alcohol (ED), Acute Cough (ED) Additional Instructions: Your workup in the ER today was reassuring. This includes your blood work, viral swabs. Your chest x-ray was clear, you did not have pneumonia. I recommend that you finish your last dose of azithromycin. Use Zofran as needed for nausea and vomiting. I recommend that you follow-up with detox resources on the page listed Prescriptions: New ondansetron 4 mg tablet,disintegrating 4 mg PO Q8H PRN (Reason: nausea and vomiting) Qty: 20 0RF No Action cyclobenzaprine 5 mg tablet 5 mg PO Q8H PRN (Reason: muscle spasm) Qty: 7 0RF ondansetron 4 mg tablet,disintegrating 4 mg PO DAILY PRN (Reason: nausea and vomiting) 5 Days Qty: 10 0RF Print Language: Czech
[2024-05-08] MEDS: Ondansetron ODT 4 MG TAB.RAPDIS TRANSLINGU (00:47)
[2024-05-08] MEDS: LORazepam 1 MG TABLET 2 MG PO (00:48)
[2024-05-08 00:49] LABS: HCG Quantitative < 2 mIU/mL
--- NOTE | 2024-05-08 01:08 | PC.NURSE ---
pt a&ox4, respirations even and unlabbored. pt reporting x3 days of nausea, vomiting and diarrhea, pt also reports drinking x1 sleeve of nips a day and has not drank since she was sick and reports she thinks she is in withdrawal. pt CIWA= 0. pt medicated per mar, tolerated well with water.
[2024-05-08 01:09] VITALS: BP 103/75; PULSE 87; RESP 14; TEMP 36.9; O2SAT 96
--- NOTE | 2024-05-08 01:12 | PC.NURSE ---
pt reports she does not feel as if she wants to go to rehab or have any assistance to help stop drinking.
[2024-05-08 01:48] LABS: Influenza A PCR NEGATIVE (Negative); Influenza B PCR NEGATIVE (Negative); Resp Syncy Virus RNA Qual PCR NEGATIVE (Negative); SARS COV2 PCR INHOUSE NEGATIVE (Negative)
[2024-05-08 02:17] VITALS: BP 103/75; PULSE 87; RESP 14; TEMP 36.9; O2SAT 96
== END 2024-05-08 02:18 | disposition home or self-care (01) ==
PROVIDERS: Physician Assistant; Emergency Provider Emergency Medicine; PCP Family Medicine
DX: R05.9 Cough, unspecified (principal); F10.10 Alcohol abuse, uncomplicated; R11.2 Nausea with vomiting, unspecified; Y90.7 Blood alcohol level of 200-239 mg/100 ml; Z71.41 Alcohol abuse counseling and surveillance of alcoholic; Z51.81 Encounter for therapeutic drug level monitoring; Z03.818 Encounter for observation for suspected exposure to other biological agents ruled out; Z79.899 Other long term (current) drug therapy
CPT/HCPCS: 0241U; 36415; 71046; 80053; 80307; 83690; 84702; 85025; 99284

== ENCOUNTER 2024-06-06 05:25 | Emergency (ER) | payer OTHER, SELFPAY ==
--- NOTE | ~2024-06-06 | XR_ITS ---
CLINICAL HISTORY: ankle swelling pain Exam: AP, lateral, and mortise views of the right ankle. Comparison: None. Findings: Bony alignment is anatomic. No acute fracture. Ankle mortise is intact. Well corticated ossification inferior to the lateral malleolus measures 3 mm in size. Moderate lateral soft tissue swelling. Impression: Moderate lateral soft tissue swelling without acute fracture. This document has been electronically signed by: Donnell Galvan MD on 06/06/2024 06:48:51
[2024-06-06 05:30] VITALS: BP 111/63; PULSE 86; RESP 16; TEMP 36.2; O2SAT 97; BMI 31.9
--- NOTE | 2024-06-06 07:53 | ED.EXTPRO ---
HPI - Extremity Problem General Chief complaint: Extremity Problem Stated complaint: right swollen ankle Time Seen by Provider: 06/06/24 07:30 Source: patient Mode of arrival: ambulatory Limitations: no limitations History of Present Illness ED Provider: SHERLY CANAS PA-C HPI Narrative: 38 year old female with pmhx significant for etoh abuse presents to the ED today for evaluation of right ankle swelling/ redness x2 days. Report pain and swelling has been increasing over the last few days. Pain is worse with ambulating. She has been icing, elevating and taking tylenol/ motrin at home with little relief. Last dose was last night. She denies any injury, trauma or falls. No known history of gout or DM. She was recently started on hydroxyzine, trazodone, and naltrexone. She has been sober from etoh for 3-4 weeks now. Denies fever, chills, nausea or vomiting, numbness/tingling/weakness to the lower extremity. Denies IV drug use. Related Data Previous Rx's ?Medication ?Instructions ?Recorded cyclobenzaprine 5 mg tablet 5 mg PO Q8H PRN muscle spasm #7 09/05/23 tabs ondansetron 4 mg disintegrating 4 mg PO DAILY PRN nausea and 09/05/23 tablet vomiting 5 days #10 tabs ondansetron 4 mg disintegrating 4 mg PO Q8H PRN nausea and 05/08/24 tablet vomiting #20 tabs naproxen 500 mg tablet 500 mg PO Q12H PRN pain (scale 06/06/24 score 1-3) #20 tabs prednisone 20 mg tablet 40 mg (2 x 20 mg) PO DAILY 5 days 06/06/24 #10 tabs Allergies Allergy/AdvReac Type Severity Reaction Status Date / Time No Known Allergies Allergy Verified 06/06/24 05:31 Review of Systems Review of Systems: Constitutional: No fever, chills, fatigue, night sweats, weight changes ENT/Mouth: No ear pain, hearing loss, nasal congestion, sinus pain, rhinorrhea, sore throat Eyes: No eye pain, swelling, redness, vision changes, discharge Cardio: No chest pain, palpitations, MORENO, orthopnea, peripheral edema Pulm: No SOB, cough, sputum, wheezing, dyspnea, hemoptysis GI: No nausea, vomiting, hematemesis, abdominal pain, diarrhea, constipation, hematochezia, melena : No irregular bleeding, dysuria, frequency, urgency, hesitancy, hematuria, flank pain, urinary flow changes, urinary incontinence or retention MSK: No back pain, neck pain, joint pain, myalgias, +right ankle pain/swelling/redness Skin: No lesions, rashes Neuro: No weakness, numbness, paresthesias, LOC, dizziness, headache Psych: No anxiety/panic, depression, SI/HI, AH/VH All other systems reviewed and are negative. [facility] Past Medical History Attestation statement: The following information was validated with the patient. Source: old records reviewed and nursing notes reviewed Social History Social History Alcohol intake: current Advance Directives: No Advance Directives Information Provided: Yes Do you have a plan to hurt others: No Plan Physical Exam Vital Signs: Vital Signs: Last Vital Signs Temp 97.1 F 06/06/24 05:30 Pulse 86 06/06/24 05:30 Resp 16 06/06/24 05:30 BP 111/63 06/06/24 05:30 Pulse Ox 97 06/06/24 05:30 O2 Del Method Room Air 06/06/24 05:30 BMI result Body Mass Index 31.9 vital signs stable, afebrile General: Well appearing, in no acute distress. Skin: Warm, dry, intact. No rashes or lesions. Head: Normocephalic, atraumatic. EENT: Hearing is intact b/l. Conjunctiva clear. PERRLA. EOM intact. Moist mucous membranes.? Cardiac: Chest wall symmetric. RRR Lungs: Normal respiratory effort without accessory muscle use. CTA bilaterally Back: No midline spinous or paraspinal tenderness. No step off deformity. Ext: +right ankle with noted swelling. minimal overlying erythema. no obvious deformity. decreased ROM d/t pain, swelling. diffuse ttp of ankle w/o palpable deformity, crepitus, fluctuance. ambulating w/ limping gait. 2+ pt/dp pulse intact. Neuro: AOx3. Normal speech. Psych: Appropriate mood and affect. Responds appropriately to questions. Course Course Course Narrative: CBC without leukocytosis or left shift. Macrocytic anemia, likely secondary to ETOH abuse. H&H stable. Chemistry without acute electrolyte abnormality requiring intervention. No SHARON. Random glucose 184. Normal liver function. Inflammatory markers elevated. Uric acid elevated to 9.9. Beta HCG undetectable > both exam and workup are consistent with acute gout attack. Patient treated with Toradol in the ED. Will send naproxen and prednisone to pharmacy for treatment. Omer wrap applied to the ankle and she has been provided with crutches. Educated on rice treatment. She has already scheduled follow up with her PCP within the next few weeks. Patient has remained stable throughout ED visit today. Discussed worrisome signs and symptoms and when to return to the ED. All questions answered at this time. Patient is agreeable with disposition and stable for discharge. Medications Administered Discontinued Medications Generic Name Dose Route Start Last Admin Trade Name Freq PRN Reason Stop Dose Admin Ketorolac Tromethamine 30 mg 06/06/24 07:50 06/06/24 09:01 Ketorolac Tromethamine 30 Mg/Ml Vial IM 06/06/24 07:51 30 mg ONCE ONE Administration Medical Decision Making Medical Decision Making [facility] Narrative: 38 year old female with pmhx significant for etoh abuse presents to the ED today for evaluation of right ankle swelling/ redness x2 days. Vital signs stable. Afebrile. She is nontoxic-appearing and in no acute distress. Exam significant for right ankle with noted swelling. minimal overlying erythema. no obvious deformity. decreased ROM d/t pain, swelling. diffuse ttp of ankle w/o palpable deformity, crepitus, fluctuance. ambulating w/ limping gait. 2+ pt/dp pulse intact. Differential diagnosis includes fracture, MSK sprain/strain, gout, pseudogout. Lower suspicion for Lyme arthritis vs septic joint. Unlikely DVT, neurovascular compromise, threat to limb, compartment syndrome. Imaging obtained prior to my assumption of care. Will add on basic blood work, uric acid level. Toradol ordered for pain control. Plan for re-evaluation. Differential Diagnosis Differential Diagnoses: The differential diagnosis associated with the presentation includes as above. Admission/Observation Not indicated. Lab Data [facility] Lab Attestation statement: I reviewed the patient's lab results. as above. 06/06/24 08:37 06/06/24 08:37 Labs: Lab Results 06/06/24 Range/Units 08:37 WBC 8.6 (4.8-10.8) X10*3/uL RBC 3.62 L D (4.20-5.50) X10*6/uL Hgb 12.1 D (12.0-16.0) g/dl Hct 36.4 L (37.0-47.0) % MCV 100.6 H (80.0-98.0) fL MCH 33.4 H (27.0-33.0) pg MCHC 33.2 (31.0-35.0) g/dl RDW 12.0 (11.0-16.0) % Plt Count 251 (160-400) X10*3/uL MPV 10.1 (9.4-12.3) fL Immature Gran % (Auto) 0.2 (0.0-0.4) % Neut % (Auto) 70.4 (45-73) % Lymph % (Auto) 22.8 (20-40) % [place] % (Auto) 5.2 (2-11) % Eos % (Auto) 0.8 (0-4) % Baso % (Auto) 0.6 (0-2) % Lymph # (Auto) 2.0 (1.2-4.9) X10*3/uL [place] # (Auto) 0.5 (0.1-1.2) X10*3/uL Eos # (Auto) 0.1 (0.0-0.4) X10*3/uL Baso # (Auto) 0.1 (0.0-0.2) X10*3/uL Abs Immat Gran (auto) 0.02 (0.00-0.03) X10*3/uL Absolute Neuts (auto) 6.0 (2.0-8.3) x10*3/uL Absolute Nucleated RBC 0.000 (0.0-0.012) X10*3/uL Nucleated RBC % (auto) 0.0 (0.0-0.2) /100WBC ESR 25 H (0-20) MM/HR Sodium 141 (135-145) mmol/L Potassium 3.9 (3.3-5.1) mmol/L Chloride 110 H (96-108) mmol/L Carbon Dioxide 25 (22-29) mmol/L Anion Gap 10 L (12-20) BUN 12 (9-16) mg/dL Creatinine 0.76 (0.5-1.4) mg/dL Estim Creat Clear Calc 119.9 Estimated GFR > 60 Random Glucose 184 H (60-115) mg/dL Uric Acid 9.9 H (2.4-5.7) mg/dL Calcium 8.5 (8.4-10.2) mg/dL Total Bilirubin 0.4 (0.0-1.0) mg/dL AST 15 (5-31) U/L ALT 17 (0-31) U/L Alkaline Phosphatase 70 (39-117) U/L C-Reactive Protein 1.90 H (< or = 0.50) mg/dL Total Protein 6.9 (6.5-8.0) g/dL Albumin 3.9 (3.5-5.0) g/dL Beta HCG, Quant < 2 mIU/mL Independent Interpretation I performed an independent interpretation of an: Plain X-Ray Interpretation: XR right ankle w/o acute fracture Radiology Impression Discussion of test interpretation with radiology: I have reviewed the radiologist's reading. Radiologist Impression: CLINICAL HISTORY: ankle swelling pain Exam: AP, lateral, and mortise views of the right ankle. Comparison: None. Findings: Bony alignment is anatomic. No acute fracture. Ankle mortise is intact. Well corticated ossification inferior to the lateral malleolus measures 3 mm in size. Moderate lateral soft tissue swelling. Impression: Moderate lateral soft tissue swelling without acute fracture. This document has been electronically signed by: Donnell Galvan MD on 06/06/2024 06:48:51 Prescription Management I considered prescription management with: Pain Medication (Naproxen) and Other (Prednisone) Chronic Conditions Patient?s care impacted by: Other (etoh abuse) Social Determinants Patient?s care significantly limited by Social Determinants of Health including: Other Social Determinant of Health Procedures Orthopedic Splinting/Casting Injury #1: Side: right Lower Extremity Injury Location: ankle Lower Extremity Immobilizer: Omer wrap Other Orthopedic Equipment: crutches Critical Care Time Critical Care Time Critical Care Time: No Discharge Plan Discharge Clinical Impression: Gout Patient Disposition: Home, Self-Care Instructions: Crutch Instructions (ED), Low Purine Diet (ED), Gout (ED), R.I.C.E. Treatment (ED) Additional Instructions: You were evaluated in the emergency department today for right ankle pain/swelling. Your blood work shows an elevated uric acid level along with elevated inflammatory markers. This is indicative of gout. Gout is a condition consisting of elevated uric acid levels which causes uric acid deposition within the joints, leading to pain/swelling. Treatment for this is with anti-inflammatory pain medication and steroids. Naproxen as an anti-inflammatory pain medication that has been sent to your pharmacy for you to take as needed for pain. Do not take this with other NSAIDs such as Motrin as this can cause increased risk of GI bleeding. Prednisone as a steroid that has been sent to your pharmacy. Take this as prescribed over the next 5 days. Keep the ankle elevated at home to help with swelling. Rest and ice the ankle. Use the omer wrap for compression. As discussed, please follow up with your primary care provider as plan. Return with any new or worsening symptoms. In the case of an emergency call 911. Prescriptions: New naproxen 500 mg tablet 500 mg PO Q12H PRN (Reason: pain (scale score 1-3)) Qty: 20 0RF prednisone 20 mg tablet 40 mg PO DAILY 5 Days Qty: 10 0RF No Action cyclobenzaprine 5 mg tablet 5 mg PO Q8H PRN (Reason: muscle spasm) Qty: 7 0RF ondansetron 4 mg tablet,disintegrating 4 mg PO DAILY PRN (Reason: nausea and vomiting) 5 Days Qty: 10 0RF ondansetron 4 mg tablet,disintegrating 4 mg PO Q8H PRN (Reason: nausea and vomiting) Qty: 20 0RF Referrals: Rich Chavira MD [Primary Care Provider] - Stand Alone Forms: Work/School Release Print Language: Vietnamese
[2024-06-06 08:41] LABS: MANUAL DIFF FLAG NO
[2024-06-06 08:44] LABS: Basophils Absolute Auto 0.1 X10*3/uL (0.0-0.2); Basophils Percent Auto 0.6 % (0-2); Eosinophils Absolute Auto 0.1 X10*3/uL (0.0-0.4); Eosinophils Percent Auto 0.8 % (0-4); Hematocrit 36.4 % (37.0-47.0); Hemoglobin 12.1 g/dl (12.0-16.0); Imm Gran Abs Auto 0.02 X10*3/uL (0.00-0.03); Imm Gran Pct Auto 0.2 % (0.0-0.4); Lymphocytes Percent Auto 22.8 % (20-40); Mean Corpuscular HGB Conc 33.2 g/dl (31.0-35.0); Mean Corpuscular Hemoglobin 33.4 pg (27.0-33.0); Mean Corpuscular Volume 100.6 fL (80.0-98.0); Mean Platelet Volume 10.1 fL (9.4-12.3); Monocytes Absolute Auto 0.5 X10*3/uL (0.1-1.2); Monocytes Percent Auto 5.2 % (2-11); Neutrophils Percent Auto 70.4 % (45-73); Platelet Count 251 X10*3/uL (160-400); Red Blood Count 3.62 X10*6/uL (4.20-5.50); White Blood Count 8.6 X10*3/uL (4.8-10.8)
[2024-06-06 08:59] LABS: Alanine Aminotransferase 17 U/L (0-31); Albumin Level 3.9 g/dL (3.5-5.0); Alkaline Phosphatase 70 U/L (39-117); Anion Gap 10 (12-20); Aspartate Amino Transferase 15 U/L (5-31); Bilirubin Total 0.4 mg/dL (0.0-1.0); Blood Urea Nitrogen 12 mg/dL (9-16); Calcium 8.5 mg/dL (8.4-10.2); Carbon Dioxide 25 mmol/L (22-29); Chloride 110 mmol/L (96-108); Creatinine Clr Calc Pharmacy 119.9; Estimated Glomerular Filt Rate > 60; Glucose Random 184 mg/dL (60-115); Potassium 3.9 mmol/L (3.3-5.1); Sodium 141 mmol/L (135-145); Total Protein 6.9 g/dL (6.5-8.0); Uric Acid 9.9 mg/dL (2.4-5.7)
[2024-06-06] MEDS: Ketorolac Tromethamine 30 MG/ML VIAL IM (09:01)
[2024-06-06 09:04] LABS: HCG Quantitative < 2 mIU/mL
[2024-06-06 09:25] LABS: Erythrocyte Sedimentation Rate 25 MM/HR (0-20)
[2024-06-06 10:18] VITALS: BP 111/63; PULSE 86; RESP 16; TEMP 36.2; O2SAT 97
== END 2024-06-06 10:36 | disposition home or self-care (01) ==
PROVIDERS: Physician Assistant Medical; Emergency Provider Emergency Medicine; PCP Internal Medicine
DX: M10.9 Gout, unspecified (principal); M25.471 Effusion, right ankle; M25.571 Pain in right ankle and joints of right foot
CPT/HCPCS: 36415; 73610; 80053; 84550; 84702; 85025; 85652; 86140; 96372; 99283; 99284; J1885

== ENCOUNTER → 2024-06-06 06:25 | Outpatient (BNV) | payer OTHER, SELFPAY | PROVIDERS: PCP Internal Medicine; Visit Provider Radiology Diagnostic Radiology | DX: M70.871 Other soft tissue disorders related to use, overuse and pressure, right ankle and foot (principal) | CPT/HCPCS: 73610 ==